=== PATIENT | male | born 1975 | race Two or more races ===

== ENCOUNTER 2024-05-26 09:00 | Day surgery (SDC) | payer MEDICAID, SELFPAY ==
[2024-05-25 13:57] VITALS: BMI 26.7
[2024-05-26] VITALS (8 sets, daily range): BP systolic 106–132; BP diastolic 69–81; PULSE 66–75; RESP 9–17; TEMP 36.2–36.7; O2SAT 96–100; BMI 25.0
[2024-05-26] MEDS: SODIUM CHLORIDE 0.9% 250 ML 250 ML 125 ML IV (10:10)
[2024-05-26] MEDS: DiphenhydrAMINE INJ 50 MG/ML VIAL 25 MG IV (10:14)
[2024-05-26] MEDS: fentaNYL CIT INJ 50 mCg/ML AMP 2ML (ASD USE ONLY) IV (10:18)
[2024-05-26] MEDS: MIDAZOLAM INJ 1 MG/ML VIAL 2 ML (ASD USE ONLY) 2 MG IV (10:18)
[2024-05-26] MEDS: SIMETHICONE 40 MG/0.6 ML ORAL SYRINGE PO (10:22)
--- NOTE | 2024-05-26 12:50 | SUR.PHASEII ---
1032: Pt received for recovery. Report from Michelle MARTINEZ. Pt sleepy. Easily aroused with eye opening. Resp even, unlabored. VS stable. No c/o pain, discomfort. 1100: Pt more awake, alert. VS stable. Denies pain. Sitting up tolerating po fluids with no difficulty swallowing and no n/v. 1119: Pt fully awake, oriented x3. Pt assisted to restroom. Ambulation steady. Pt and stated understanding of discharge instructions via [employer]. Pt discharged from [facility] in stable condition.
== END 2024-05-26 11:19 | disposition home or self-care (01) ==
PROVIDERS: PCP Physician Assistant; Referring Provider Internal Medicine Gastroenterology; Visit Provider Internal Medicine Gastroenterology
PROC: 0DBE8ZX Excision of Large Intestine, Via Natural or Artificial Opening Endoscopic, Diagnostic (ICD-10-PCS; CPT 45380; principal; 2024-05-26 09:15)
DX: Z12.11 Encounter for screening for malignant neoplasm of colon (principal); K64.8 Other hemorrhoids
CPT/HCPCS: 45380; A4217; A4649; J1200; J2250; J3010; J7050; A9270